=== PATIENT | male | born 1960 | race Caucasian/White ===

== ENCOUNTER 2019-01-07 08:58 | Day surgery (SDC) | payer OTHER ==
--- OUTSIDE RECORDS SUMMARY | 2019-01-07 09:06 | XMS REPORT | Clinical Summary ---
:1960 Author Organization [facility] Address [address] [place] [address] Care Team Providers Name Role Phone Reed Cole MD Primary Care Provider Allergies No Known Allergies Medications Medication Sig Dispensed Refills Start Date End Date Status pantoprazole (PROTONIX) Take 20 mg by 0 Active 20 MG tablet mouth daily. calcium carbonate Take 1 tablet by 0 Active (CALCIUM CARBONATE) 300 mouth 3 (three) mg Chew times daily. Active Problems Not on file Social History Tobacco Use Types Packs/Day Years Used Date Never Assessed Sex Assigned at Date Recorded Not on file Job Start Date Occupation Industry Not on file Not on file Not on file Travel History Travel Start Travel End No recent travel history available. Last Filed Vital Signs Not on file Plan of Treatment Not on file Results Not on fileafter 01/06/2018 Insurance Payer Benefit Plan / Subscriber ID Type Phone Address Group [employer]UE [employer] ADV HMO xxxxxxxxxxxx [phone] [address] [place] [address]
--- OUTSIDE RECORDS SUMMARY | 2019-01-07 09:06 | XMS REPORT | Summary of Care ---
:1960 Author Organization [facility] Internal Medicine [facility] [address] [facility] [place] [address]- Encounter HQ Encntr_alias(FIN) [id number] Date(s): 01/23/18 - 01/23/18 [facility] Internal Medicine [address] [place] [phone] Discharge Disposition: Home or Self Care Vital Signs No data available for this section Problem List No data available for this section Allergies, Adverse Reactions, Alerts No data available for this section Medications No data available for this section Results No data available for this section Immunizations No data available for this section Procedures No data available for this section Social History No data available for this section Assessment and Plan No data available for this section
--- OUTSIDE RECORDS SUMMARY | 2019-01-07 09:06 | XMS REPORT | Continuity of Care Document ---
:1960 Author Organization [facility] Care Team Providers Name Role Phone [facility] Unavailable Unavailable Problems No Data Provided for This Section Medications No Data Provided for This Section Allergies, Adverse Reactions, Alerts No Known Medication Allergies Immunizations No Data Provided for This Section Results No Data Provided for This Section Pathology Reports No Data Provided for This Section Diagnostic Reports No Data Provided for This Section Consultation Notes No Data Provided for This Section Discharge Summaries No Data Provided for This Section History and Physicals No Data Provided for This Section Vital Signs No Data Provided for This Section Encounters Location Location Encounter Encounter Reason Attending ADM DC Status Source Details Type Number For Provider Date Date Visit Outpatient [id number] [facility] 01/23 Active [facility] V[facility] [place] [facility] [id number] [facility] 01/23 [facility] [place] [facility] Outpatient [id number] 01/23 01/24 Internal /2017 [facility] Outpatient [id number] [facility] 01/23 01/24 Internal [place] /2017 [facility] [place] Procedures No Data Provided for This Section Assessment and Plan No Data Provided for This Section Plan of Care No Data Provided for This Section Social History Social History Date Source No data available for this 01/24/2018 [facility] Group section Family History No Data Provided for This Section Advance Directives No Data Provided for This Section Functional Status No Data Provided for This Section
--- OUTSIDE RECORDS SUMMARY | 2019-01-07 09:06 | XMS REPORT | Summary of Care ---
:1960 Author Organization [facility] Internal Medicine [facility] [address] [facility] [place] [place] [address]- Encounter [facility] Encntr_alias(FIN) [id number] Date(s): 01/23/18 - 01/23/18 [facility] Internal Medicine [address] [place] [phone] Discharge Disposition: Home or Self Care Attending Physician: Rebeca Bejarano PA-C Vital Signs No data available for this [...]
[2019-01-07 09:52] LABS: Absolute Lymphocytes (CBC) 1.6 K/uL (0.7-4.9); Basophils % 1.1 % (0-1.3); Eosinophils % 3.6 % (0-4.4); Hematocrit 46.9 % (39.6-49.0); Lymphocytes % 25.2 % (15.3-44.8); MPV 8.4 fL (7.6-11.3); Monocytes % 11.5 % (3.3-12.3); RBC Red Blood Cell Count 5.27 M/uL (4.33-5.43)
--- NOTE | 2019-01-07 09:54 | RAD REPORT ---
EXAM DESCRIPTION: RAD - Chest Pa And Lat (2 Views) - 01/07/2019 9:28 am CLINICAL HISTORY: Preop chest, pending soft tissue mass removal, smoking history COMPARISON: May 2018 TECHNIQUE: PA and lateral views of the chest were obtained. FINDINGS: The lungs are clear of an acute infiltrate, mass or failure finding. Lung markings are sim ilar to comparison. Heart size is normal and central vasculature is within normal limits. No pleur al effusion or pneumothorax seen. No acute bony finding noted. No aortic abnormality. No significa nt interval change. IMPRESSION: No acute cardiopulmonary process.
[2019-01-07 09:57] LABS: Potassium 4.1 mmol/L (3.5-5.1)
[2019-01-07] MEDS ORDERED: Ringers Lactate 1,000 ML IV ONE (09:59)
[2019-01-07] MEDS ORDERED: PROPOFOL 200 MG/20 ML VIAL IV ONE (11:09)
[2019-01-07] MEDS ORDERED: LIDOCAINE 2% MPF 5 ML VIAL ONE (11:09)
[2019-01-07] MEDS ORDERED: FENTANYL CITR 100 MCG/2 ML ONE (11:09)
[2019-01-07] MEDS ORDERED: MIDAZOLAM HCL 2 MG/2 ML INJ ONE (11:09)
[2019-01-07] MEDS ORDERED: CEFAZOLIN/SWI 1gm 1 GM/10 ML SYR ONE (12:00)
--- NOTE | 2019-01-07 12:24 | P.BOP ---
Preoperative diagnosis: forearm tender subQ masses Postoperative diagnosis: same Primary procedure: 1. Excisional biopsy of tender proximal forearm subq mass 4x4cm Secondary procedure: 2. Excisional biopsy of tender distal forearm subq mass 2x2 cm Estimated blood loss: <10cc Specimen: masses Findings: as above Transferred to: Recovery Room Condition: Good
[2019-01-07] MEDS ORDERED: GLYCOPYRROLATE 0.2 MG/ML SYR ONE ×2 (12:25→12:28)
[2019-01-07] MEDS ORDERED: KETOROLAC 30 MG/ML INJ ONE (12:25)
--- NOTE | 2019-01-07 19:44 | EKG ---
Test Date: 2019-01-07 Test Time: 09:16:16 [employer]: SANDI MEASUREMENT RESULTS: Intervals: Rate: 51 KS: 168 QRSD: 78 QT: 434 QTc: 400 [place]: P: 32 KS: 168 QRS: -5 T: 35 INTERPRETIVE STATEMENTS: Sinus bradycardia Otherwise normal ECG Compared to ECG 06/06/2018 17:38:34 No significant changes Electronically Signed On 01-07-19 19:40:36 CDT by Huey Varela
--- NOTE | 2019-01-12 01:23 | OP ---
Date of Procedure: 01/07/2019 Surgeon: Erik Chen MD Diagnosis: Right forearm tender subcutaneous masses. Postoperative Diagnosis: Right forearm tender subcutaneous masses. Procedures: 1.Excisional biopsy of tender proximal forearm subcutaneous mass 4 x 4 cm. 2.Excisional biopsy of tender distal forearm subcutaneous mass 2 x 2 cm. This was done in different locations. Ebl: Less than 10 cc. Specimen: Masses. Finding: As above. This mass goes all the way down to the subcutaneous tissue, does not penetrate t he muscle, although attached to fascia. Indications: This is the case of a male comes to us with 2 masses in the forearm, increasing in size and discomfort and he wants them excised. The benefits, alternatives, and risks of excision fully e xplained, which include, but not limited to infection, bleeding, damage to adjacent structures, anest hesia complication, recurrence, NM, even . He also understands this may not relieve any symptom s. He might need more than 1 surgical intervention. He understood, signed a consent. Description Of Procedure: The patient was brought to the operating room, placed in supine position. Anesthesia was done without complication. These masses were marked by me and the patient previously on the holding room. So, once we have a time-out, we proceeded to make an incision on the proximal side first since is the bigger 1. Some of the skin was removed with specimen. Specimen taken all th e way down to fascia of the muscle in 1 unit. Mass was excised. Area was irrigated. We proceeded t o close the area with a combination of 3-0 chromic. Thus after irrigation and suction after we close d that 1 then we decided to go to the second case. The second part is also a forearm mass, but this time is distal. Incision was made in the skin. Incision was carried down to deep subcutaneous tissu e. The mass was found dissected free from the rest of the subcutaneous tissue and sent as a specimen . The area was irrigated, hemostasis obtained and the area was closed with 3-0 chromic and sterile d ressings on top. The patient tolerated the procedure well. The patient was sent to Recovery in stab le condition Diagnosis: Forearm subcutaneous tender masses. Procedure: Excisional biopsy of proximal and distal forearm subcutaneous masses. Disposition: Home. Activity: As tolerated. No heavy lifting. Followup: Follow up in my office in 1 week. Call for appointment [phone]. Keep area dry for 48 ho urs, then may shower. Medications: See orders. HM/MODL Voice ID: [id number] Report ID: [id number]
== END 2019-01-07 14:15 | disposition home or self-care (01) ==
LOC: OR 08:58
PROVIDERS: ATTEND Surgery
PROC: 0JBG0ZZ Excision of Right Lower Arm Subcutaneous Tissue and Fascia, Open Approach (ICD-10-PCS; 2019-01-07)
PROC: 0JBG0ZZ Excision of Right Lower Arm Subcutaneous Tissue and Fascia, Open Approach (ICD-10-PCS; principal; 2019-01-07 10:45)
DX: R22.31 Localized swelling, mass and lump, right upper limb (principal); K21.9 Gastro-esophageal reflux disease without esophagitis; Z80.1 Family history of malignant neoplasm of trachea, bronchus and lung; Z80.8 Family history of malignant neoplasm of other organs or systems
CPT/HCPCS: 36415; 71046; 80048; 85025; 88304; 88305; 93005; J0690; J2250; J2704; J3010